=== PATIENT | male | born 1995 | race Caucasian/White ===

== ENCOUNTER 2018-01-27 17:09 | Emergency (ER) | payer BC ==
[2018-01-27] MEDS ORDERED: Acetaminophen TAB* 325 MG PO ONE (19:34)
--- NOTE | 2018-01-27 19:58 | ED ---
Head Injury - HPI Summary HPI Summary: Pt here w/ head injury while playing rugby for IC Saturday01/25/2018. He reports he collided head to head w/ another player while running. Denies LOC however didn't feel right so laid down on the field and AT came out to check him. He left the game and did not return. Has had persistent GARCIA since w/ intermittent nausea and photophobia. Denies numbness, tingling, weakness however he has Lt sided neck pain that wraps around his entire neck and has had intermittent dysphagia. Denies trouble breathing. Tried a low dose of acetaminophen w/o relief. Had f/u w/ PCP today and was sent here for further evaluation. No previous head injury. - History Of Current Complaint Chief Complaint: EDNeckComplaint Stated Complaint: NECK PAIN Time Seen by Provider: 01/27/18 19:17 Hx Obtained From: Patient Pain Intensity: 7 - Allergies/Home Medications Allergies/Adverse Reactions: Allergies Allergy/AdvReac Type Severity Reaction Status Date / Time No Known Allergies Allergy Verified 01/27/18 17:14 Home Medications: Home Medications Sertraline* [Zoloft*] 100 mg PO DAILY 01/27/18 [History Confirmed 01/27/18] PMH/Surg Hx/FS Hx/Imm Hx Previously Healthy: Yes Endocrine/Hematology History: Denies: Hx Anticoagulant Therapy, Hx Blood Disorders Neurological History: Denies: Hx Headaches, Other Neuro Impairments/Disorders - no previous head injury - Immunization History Date of Influenza Vaccine: has not received Immunizations Up to Date: Yes Infectious Disease History: No Infectious Disease History: Reports: Traveled Outside the [place] in Last 30 Days - [place] - Family History Known Family History: Positive: None - Social History Occupation: Student Lives: Dormitory/Roommates Alcohol Use: Weekly Hx Substance Use: No Substance Use Type: Reports: None Hx Tobacco Use: Yes - not currently Smoking Status (MU): Former Smoker Review of Systems Positive: Fatigue Positive: Photophobia. Negative: Blurred Vision, Diplopia Positive: Sore Throat - intermittently. Negative: Dental Pain Cardiovascular: Negative Respiratory: Negative Positive: Nausea Positive: no symptoms reported Positive: Arthralgia Skin: Negative Positive: Headache Psychological: Normal All Other Systems Reviewed And Are Negative: Yes Physical Exam Triage Information Reviewed: Yes Vital Signs On Initial Exam: Initial Vitals Temp Pulse Resp BP Pulse Ox 97.8 F 74 16 143/84 97 01/27/18 17:10 01/27/18 17:10 01/27/18 17:10 01/27/18 17:10 01/27/18 17:10 Vital Signs Reviewed: Yes Appearance: Positive: Well-Appearing, No Pain Distress - lying on stretcher, Well-Nourished Skin: Positive: Warm, Skin Color Reflects Adequate Perfusion, Dry Head/Face: Positive: Normal Head/Face Inspection - NTTP - no signs of trauma - no corcoran sign, no step off, no racoon sign Eyes: Positive: Normal, EOMI, SILVESTRE, Conjunctiva Clear ENT: Positive: Normal ENT inspection, Hearing grossly normal, Pharynx normal, TMs normal - no hemotympanum however pt does have cerumen B/L Neck: Positive: Tenderness @ - Lt paracervical mm Respiratory/Lung Sounds: Positive: Breath Sounds Present Cardiovascular: Positive: Normal, Pulses are Symmetrical in both Upper and Lower Extremities Abdomen Description: Positive: Nontender, Soft Musculoskeletal: Positive: Strength/ROM Intact - UE's and LE's Neurological: Positive: Normal, Sensory/Motor Intact, Alert, Oriented to Person Place, Time, CN Intact II-III Psychiatric: Positive: Normal Diagnostics - Vital Signs Vital Signs Temp Pulse Resp BP Pulse Ox 01/27/18 17:10 97.8 F 74 16 143/84 97 - Laboratory Lab Statement: Any lab studies that have been ordered have been reviewed, and results considered in the medical decision making process. Head Injury Course/Dx Course Of Treatment: Pt here for neck evaluation from PCP's office s/p injury on Saturday01/25/2018 - axial load injury while playing rugby. Has not had any imaging - has persistent GARCIA w/ nausea, photophobia, neck pain (Lt posterior/ paracervical most prominent however has pain anteriorly as well and dysphagia at times). Discussed w/ Dr. Vasques - brain and cervical spine prelim studies ordered - may benefit from MRI as well. Dx: concussion, cervical pain. Diff: hemorrhage, cervical injury of bone or ligaments. Signed out to Dr. Vasques at 20: 30pm in stable condition. - Diagnoses Provider Diagnoses: Closed head injury, Concussion, Neck injury - Physician Notifications Discussed Care Of Patient With: Tru Vasques Discharge - Sign-Out/Discharge Documenting (check all that apply): Sign-Out Patient Signing out patient TO: Tru Vasques - Discharge Plan Condition: Stable Discharge Disposition Comment: Signed out to Dr. Vasques - Billing Disposition and Condition Condition: STABLE
--- NOTE | 2018-01-27 21:23 | RAD ---
indication: Left-sided neck pain after rugby injury COMPARISON: None A CT scan of the brain and c-spine was performed without intravenous contrast enhancement. Contiguous axial sections were obtained from the lung apices through the vertex. BRAIN: The ventricles, cisterns and sulci are within normal limits. No significant focal abnormality or mass effect is seen. The robledo-white differentiation is adequately maintained. There is no intracranial hemorrhage. No significant bony abnormality is present. The mastoid air cells are appropriately aerated. The visualized paranasal sinuses are clear. C-SPINE: On the sagittal view images there is straightening of the normal cervical lordosis. The vertebral bodies and facet joints are otherwise appropriately aligned. There is no definite fracture or dislocation identified. There is no hyperdense material in the cervical canal to indicate hemorrhage. The visualized musculature and soft tissues are normal. There is no gross lymphadenopathy visualized. The visualized portion of the lung apices are clear. IMPRESSION: 1. No calvarial fracture or acute intracranial hemorrhage. 2. No acute fracture or dislocation of the cervical spine.
[2018-01-27 23:54] VITALS: BP 141/84
--- NOTE | 2018-01-28 07:38 | RAD ---
HISTORY: Neck tenderness, limited range of motion, possible ligamentous injury, subacute trauma COMPARISONS: CT dated January 27, 2018 TECHNIQUE: The following sequences were obtained of the cervical spine: Sagittal T1- and T2-weighted images, sagittal STIR images, axial T2 and gradient echo images. FINDINGS: Evaluation is somewhat limited by patient motion artifact. BRAIN AND SPINAL CORD: The visualized spinal cord is normal in caliber, position, and signal intensity. The visualized portion of the brain is unremarkable. The cerebellar tonsils are normal in position. ALIGNMENT: There is straightening of the normal cervical lordosis. The alignment is otherwise normal. VERTEBRAL BODIES: The bones are normal in signal intensity. JOINTS: There is no subluxation or dislocation. MUSCULATURE: Normal INTERVERTEBRAL DISCS: There is mild diffuse loss of intervertebral disc height and T2 signal throughout the spine, with relative sparing at C6-C7 and C7-T1.. AXIAL IMAGES: C2-C3: There is no disc herniation, spinal stenosis, or neuroforaminal narrowing. C3-C4: There is no disc herniation, spinal stenosis, or neuroforaminal narrowing. C4-C5: There is no disc herniation, spinal stenosis, or neuroforaminal narrowing. C5-C6: There is no disc herniation, spinal stenosis, or neuroforaminal narrowing. C6-C7: There is no disc herniation, spinal stenosis, or neuroforaminal narrowing. C7-T1: There is no disc herniation, spinal stenosis, or neuroforaminal narrowing. SOFT TISSUES: The visualized soft tissues of the neck are unremarkable. There is no soft tissue edema to suggest soft tissue injury. The low T1 signal bands of the anterior longitudinal ligament, posterior longitudinal ligament, and ligamentum flavum are intact. OTHER: None. IMPRESSION: 1. STRAIGHTENING OF THE CERVICAL LORDOSIS. 2. OTHERWISE UNREMARKABLE MRI OF THE CERVICAL SPINE. THERE IS NO SIGNIFICANT NEURAL FORAMINAL NARROWING OR CENTRAL CANAL STENOSIS. THERE IS NO BONE OR SOFT TISSUE EDEMA TO SUGGEST ACUTE INJURY. THERE IS NO DISRUPTION OF THE LONGITUDINAL LIGAMENTS OR LIGAMENTUM FLAVUM
--- NOTE | 2018-01-29 18:30 | ED ---
Papito Dumont Angela, scribed for Tru Vasques MD on 01/27/18 at 2340 . Progress - Progress Note Progress Note: This pt was signed out by NATHALIE Harper, pending disposition, awaiting Brain CT , Cervical spine CT, and brain MRI. Cervical Spine CT, as read by radiologist IMPRESSION: 1. No calvarial fracture or acute intracranial hemorrhage. 2. No acute fracture or dislocation of the cervical spine. Brain CT, as read by radiologist 1. No calvarial fracture or acute intracranial hemorrhage. 2. No acute fracture or dislocation of the cervical spine. Cervical spine MRI, as read by radiologist IMPRESSION: There is mild reversal of the usual cervical lordosis, possibly positional related to muscle spasm. There is no cervical spine fracture or cervical subluxation seen. No prevertebral soft tissue edema to indicate ligamentous injury. No cervical disc herniation or intraspinal mass lesion seen. Normal caliber cervical spinal cord without edema, hemorrhage or syrinx. Dr. Vasques has reviewed these radiology reports. Re-Evaluation - Re-Evaluation First Eval Re-Evaluation Time: 23:41 Change: Improved Comment: Pt reports feeling better. He is neurologically intact. He understands to and agrees discharge instructions. Course/Dx - Course Course Of Treatment: Pt feels better after Tylenol. I reviewed the CT brain, CT cervical spine, and MRI cervical spine results with the pt. He is neurologically intact. Pt agrees to and understands discharge instructions. Full ROM of neck. - Diagnoses Provider Diagnoses: Closed head injury, Concussion, Neck injury Discharge - Sign-Out/Discharge Documenting (check all that apply): Discharge - discharge to home - Discharge Plan Condition: Stable Disposition: HOME Patient Education Materials: Cervical Strain (DC), Concussion (ED) Forms: *School Release, *Work Release Referrals: Eladio Davey DC [Primary Care Provider] - Additional Instructions: PLEASE AVOID RIGOROUS PHYSICAL ACTIVITY FOR 1-2 WEEKS PLEASE GIVE YOURSELF REST FOR AT LEAST 2 DAYS BEFORE RESUMING NORMAL ACTIVITIES PLEASE RETURN IMMEDIATELY TO THE ER IF YOU HAVE ANY WORSENING OR CONCERNING SYMPTOMS PLEASE MAKE AN APPOINTMENT TO BE SEEN BY YOUR PRIMARY CARE DOCTOR WITHIN 1 WEEK - Billing Disposition and Condition Condition: STABLE Disposition: HOME The documentation as recorded by the Papito guido Angela accurately reflects the service I personally performed and the decisions made by , Tru Vasques MD.
== END 2018-01-27 23:50 | disposition home or self-care (01) ==
LOC: ED 17:09
DX: S06.0X0A Concussion without loss of consciousness, initial encounter (principal); S19.9XXA Unspecified injury of neck, initial encounter; W51.XXXA Accidental striking against or bumped into by another person, initial encounter; Y93.63 Activity, rugby; Y92.39 Other specified sports and athletic area as the place of occurrence of the external cause; R53.83 Other fatigue; J02.9 Acute pharyngitis, unspecified; Z87.891 Personal history of nicotine dependence
CPT/HCPCS: 70450; 72125; 72141; 99283; A9270-GY